=== PATIENT | female | born 1995 | race African-American/Black ===

== ENCOUNTER 2021-09-07 04:46 | Emergency (ER) | payer BC, SELFPAY | END 2021-09-07 06:36 | disposition home or self-care (01) | LOC: CSHERS 04:46 | DX: S00.83XA Contusion of other part of head, initial encounter (principal); W19.XXXA Unspecified fall, initial encounter | CPT/HCPCS: 70450 ==

== ENCOUNTER 2021-10-30 07:48 | Emergency (ER) | payer BC, SELFPAY ==
[2021-10-30] MEDS ORDERED: Acetaminophen 325 MG TAB ONE (08:15)
== END 2021-10-30 09:35 | disposition home or self-care (01) ==
LOC: CSHERS 07:48
DX: M25.531 Pain in right wrist (principal)

== ENCOUNTER 2022-02-05 14:22 | Emergency (ER) | payer SELFPAY ==
[2022-02-05 14:52] LABS: #Monocytes 0.4 10x3/uL (0.0-1.1); #Neutrophils 2.9 10x3/uL (1.5-8.4); %Basophils 0.3 % (0.0-2.0); %Eosinophils 0.7 % (0.0-6.0); %Lymphocytes 44.1 % (18.0-47.0); %Monocytes 6.2 % (0.0-10.0); %Neutrophils 48.5 % (40.0-75.0); Hemoglobin 11.9 g/dL (12.0-15.5); Mean Corpuscular HGB CONC 32.2 g/dL (32.0-36.0); Mean Corpuscular Hemoglobin 26.7 pg (27.0-33.0); Mean Corpuscular Volume 83.1 fl (81.6-98.3); Mean Platelet Volume 10.1 fl (7.4-10.4); Platelet Count 240 10x3/uL (150-450); RBC Distribution Width 13.1 % (11.5-14.5); Red Blood Cell (RBC) Count 4.45 10x6/uL (3.90-5.03); White Blood Cell (WBC) Count 5.9 10x3/uL (3.5-10.5)
[2022-02-05 15:04] LABS: ALT (SGPT) 11 U/L (8-55); AST (SGOT) 16 U/L (5-34); Alkaline Phosphatase 84 U/L (40-110); Anion Gap 11 mmol/L (10-20); BUN (Urea Nitrogen) 10 mg/dL (7.0-18.7); Bilirubin, Total 0.5 mg/dL (0.2-1.2); Calc. Creatinine Clearance 0 mL/min (70-130); Calcium 9.2 mg/dL (7.8-10.44); Carbon Dioxide 27 mmol/L (22-29); Chloride 104 mmol/L (98-107); Estimated GFR 79; Globulin 2.9 g/dL (2.4-3.5); Glucose 111 mg/dL (70-105); Lipase 20 U/L (8-78); Potassium 4.4 mmol/L (3.5-5.1); Protein, Total 6.9 g/dL (6.0-8.3); Sodium 138 mmol/L (136-145)
[2022-02-05 15:30] LABS: BHCG - Serum Negative (NEGATIVE); Pregs Control Background? CLEAR/WHITE (CLR/WHITE); Pregs Control Bar Appear? YES (CONTROL BAR)
[2022-02-05] MEDS ORDERED: Senokot S 8.6-50 MG TAB PO SCH (18:00)
[2022-02-05] MEDS ORDERED: Lidocaine Viscous Sol 2% 15 ml UD Cup ONE (18:08)
[2022-02-05] MEDS ORDERED: Mag-Al Plus 1200 MG/1200 MG/120 MG/30 ML UDCUP ONE (18:08)
== END 2022-02-05 18:25 | disposition home or self-care (01) ==
LOC: CSHERS 14:22
DX: K59.00 Constipation, unspecified (principal); K21.9 Gastro-esophageal reflux disease without esophagitis
CPT/HCPCS: 71045; 80053; 83690; 84484; 84703; 85025; 93005

== ENCOUNTER 2022-02-20 22:35 | Emergency (ER) | payer SELFPAY ==
[2022-02-20] MEDS ORDERED: Mag-Al Plus 1200 MG/1200 MG/120 MG/30 ML UDCUP ONE (23:46)
== END 2022-02-21 00:15 | disposition home or self-care (01) ==
LOC: CSHERS 22:35
DX: R10.13 Epigastric pain (principal)
CPT/HCPCS: 99283